=== PATIENT | male | born 1995 | race Caucasian/White ===

== ENCOUNTER 2017-02-05 22:03 | Emergency (ER) | payer BC ==
[~2017-02-05] VITALS: Ht 175.3 cm; Wt 72.6 kg
[~2017-02-05 22:03] MED LIST: NOHOMEMEDS
[2017-02-05 22:40] VITALS: BP 135/76
[2017-02-05 23:18] LABS: HEMATOCRIT 44.2 % (38.0-50.0); MCH 28.2 PG (29.0-34.0); MCHC 33.7 G/DL (30.0-36.0); MCV 83.6 FL (86-99); PLATELET COUNT 251 K/uL (156-360); RBC DIS.WIDTH-CV 13.1 % (11.8-14.6); RBC DIS.WIDTH-SD 39.6 % (39-53); RED BLOOD COUNT 5.29 M/uL (4.00-5.50); WHITE BLOOD COUNT 11.7 K/uL (4.1-10.2)
[2017-02-05 23:25] LABS: CHLORIDE 105 mEq/L (99-109); POTASSIUM 3.7 mEq/L (3.7-5.4); SODIUM 142 mEq/L (136-147)
[2017-02-05 23:27] LABS: GLUCOSE 108 mg/dL (70-99)
[2017-02-05 23:28] LABS: ANION GAP 13 MEQ/L (2-14)
[2017-02-05 23:30] LABS: GFR ESTIMATE (CALCULATED) > 59 mL/min/
[2017-02-05 23:31] LABS: UREA NITROGEN (BUN) 19 mg/dL (9-23)
[2017-02-05 23:37] LABS: TROP-I INTERPRETATION NEGATIVE; TROPONIN-I < 0.01 ng/mL (0.0-0.30)
== END 2017-02-06 00:19 | disposition home or self-care (01) ==
LOC: EME 22:03
PROVIDERS: Emergency Medicine
DX: R07.89 Other chest pain (principal)
CPT/HCPCS: 71020; 80048; 83880; 84484; 85027; 93005; 99281; 99283